=== PATIENT | male | born 1990 | race Caucasian/White ===

== ENCOUNTER 2020-12-01 11:50 | Emergency (ER) | payer OTHER ==
[~2020-12-01] VITALS: Ht 177.8 cm; Wt 72.6 kg
[2020-12-01] MEDS ORDERED: CEPH500 PO (12:09)
== END 2020-12-01 12:15 | disposition home or self-care (01) ==
LOC: ER 11:50
DX: L03.031 Cellulitis of right toe (principal)
CPT/HCPCS: 99282